=== PATIENT | female | born 1975 | race Caucasian/White ===

== ENCOUNTER 2023-10-04 01:43 | Day surgery (SDC) | payer MEDICARE, MEDICAID, SELFPAY ==
[2023-09-30 09:59] VITALS: BMI 48.1
--- NOTE | 2023-09-30 10:10 | PC.NURSE ---
Report to the Outpatient Waiting Room, entrance under the green pavilion located off [facility], at time 10:15 on date 10/04/23. Planned Procedure Time: 12:15. Time changes happen often and if your time is changed the preop area will call you the afternoon before. - You and your visitor will be asked to self-screen and do not enter if you have any COVID symptoms. - A mask is optional within the hospital at this time. Patients may have clear liquids (water, carbonated beverages, clear teas, apple juice) until 3 hours prior to surgery (9:15) with a maximum of 20 ounces. - No food from midnight until time of surgery Take the following medications with a SIP of water the morning of surgery: INHALERS, BENZTROPINE, CLONIDINE, FLUOXETINE, GABAPENTIN, LEVOTHYROXINE, OLANZAPINE, TOPIRAMATE DO NOT STOP ANY OF YOUR OTHER PRESCRIPTION MEDICATIONS PRIOR TO SURGERY ?EXCEPT THE FOLLOWING Medications to discontinue per physician: VITAMINS/SUPPLEMENTS Date to take last dose: 09/30/23 Please no make-up, nail hungarian, hairspray, perfume, deodorant, or body powder the day of surgery. No jewelry (including any body piercings) or valuables the day of surgery, leave them at home. Please take a shower or bath the night before, or the morning of, surgery with an antibacterial soap. Wear comfortable, loose fitting clothing. - Jewelry must be removed prior to entering the operating room. Rings and piercings that are not removed may be cut off. - The hospital will not accept responsibility for valuables. - Please leave all valuables, including medications, at home the day of surgery. If you are going home after surgery, a licensed local company tanker driver must drive you home. - NO public transportation without another adult if you receive anesthesia. - We recommend that an adult stay with you for 24 hours following discharge. - We also recommend that you do not drive, make important decision, drink alcoholic beverages, or take any drugs that were not prescribed by your health care provider for at least 24 hours after your discharge time. Follow any additional instructions given to you from your surgeon. If you or anyone in your household have experienced Covid symptoms in the past week, please notify your surgeon or the nurse liaison at the phone number below for possible testing. Telephone instructions given to PT - MELINDA ASHER and asked if any additional questions and then verbalized understanding. Patient advised to call surgeon office or pre surgery nurse liaison [phone] if any additional questions.
--- NOTE | 2023-10-02 07:48 | PM.IMHP ---
H&P: HPI History of Present Illness Date/Time: 10/02/23 07:48 Chief Complaint: Recurrent left Bartholin's cyst Narrative: This 48 old female admitted for excision recurrent breast cyst. She has been treated with antibiotics has been sterilized. Risks benefits PMFSH Social History Social History Smoking packs per day: 3 Smoking cigarettes per day: 60.0 Years smoked: 20 Smoking pack-years: 60.00 Smoking status: Former smoker Tobacco type: cigarettes Smoking end date: 07/29/14 Alcohol intake: never Substance use: never Substance use type: does not use Living arrangements: alone Spiritual care concerns: No Meds Home Medications and Allergies Home Medications Medication Instructions Recorded Confirmed Type atorvastatin 40 mg tablet 40 mg PO HS 09/30/23 09/30/23 History benztropine 1 mg tablet 1 mg PO DAILY 09/30/23 09/30/23 History clonidine HCl 0.1 mg tablet 0.1 mg PO DAILY 09/30/23 09/30/23 History diphenhydramine HCl 25 mg capsule 25 mg PO HS PRN Allergy Symptoms 09/30/23 09/30/23 History (Benadryl) doxepin 50 mg capsule 50 mg PO HS 09/30/23 09/30/23 History fluoxetine 10 mg tablet 10 mg PO DAILY 09/30/23 09/30/23 History fluoxetine 40 mg capsule 40 mg PO DAILY 09/30/23 09/30/23 History gabapentin 600 mg tablet 600 mg PO QID 09/30/23 09/30/23 History glycopyrrolate 9 mcg-formoterol 2 puff inhalation BID 09/30/23 09/30/23 History 4.8 mcg HFA aerosol inhaler (Bevespi Aerosphere) levalbuterol HCl 1.25 mg/3 mL 2.5 mg inhalation Q4H PRN 09/30/23 09/30/23 History solution for nebulization Shortness Of Breath levothyroxine 100 mcg tablet 100 mcg PO DAILY 09/30/23 09/30/23 History metformin 500 mg tablet,extended 500 mg PO BID 09/30/23 09/30/23 History release 24 hr mometasone 50 mcg/actuation nasal 2 spray intranasal DAILY 09/30/23 09/30/23 History spray (Nasonex 24hr Allergy) [id number]-[id number]-[id number] ac 400 1 tablet PO DAILY 09/30/23 09/30/23 History mcg-calcium carb 500 mg-vit K1 20 mcg tablet (Women's 50 Plus Multivitamin) olanzapine 2.5 mg tablet 2.5 mg PO DAILY 09/30/23 09/30/23 History olanzapine 5 mg tablet 5 mg PO TID 09/30/23 09/30/23 History omeprazole 20 mg capsule,delayed 20 mg PO DAILY 09/30/23 09/30/23 History release topiramate 50 mg tablet 50 mg PO DAILY 09/30/23 09/30/23 History Allergies Allergy/AdvReac Type Severity Reaction Status Date / Time adhesive tape Allergy Rash Verified 09/30/23 09:51 albuterol Allergy Anaphylaxis Verified 09/30/23 09:51 cetirizine [From Zyrtec] Allergy Unknown Verified 09/30/23 09:51 levofloxacin Allergy Rash Verified 09/30/23 09:51 Sulfa (Sulfonamide Allergy Other Verified 09/30/23 09:51 Antibiotics) technetium-99m Allergy Headache Verified 09/30/23 09:51 tizanidine Allergy Hallucinati Verified 09/30/23 09:51 ng POWDER IN EXAM GLOVES Allergy Rash Uncoded 09/30/23 09:51 Exam Const: General: cooperative, healthy appearing and comfortable Nutritional Appearance: overweight Orientation/consciousness: oriented to person, oriented to place and oriented to time Resp: Effort & Inspection: normal respiratory effort Cardio: Rate: regular rate Rhythm: regular rhythm Heart sounds: S1 normal heart sound present and S2 normal heart sound present GI: Inspection: normal to inspection : External Female Exam: normal external appearance and other (Small left cyst noted) Assessment and Plan Assessment and plan (1) Bartholin's cyst: Code(s): N75.0 - Cyst of Bartholin's gland Status: Acute Plan Excision and drainage of porcelain cyst
--- NOTE | 2023-10-03 12:44 | WPDANESEPPF ---
Anes - Initial Pre Proc Eval Procedure: Operation Date: 10/04/23 12:15 Proposed Procedures p Excision of Left Bartholin's Gland Cyst - Avery Pickard MD Date/Time: 10/03/23 12:44 Surgeon: Avery Pickard MD Pre Op Diagnosis: Left Bartholin's Gland Cyst Patient Data Age: 48 Gender: F Height: 1.68 m Weight: 135.2 kg Allergies Allergy/AdvReac Type Severity Reaction Status Date / Time adhesive tape Allergy Rash Verified 09/30/23 09:51 albuterol Allergy Anaphylaxis Verified 09/30/23 09:51 cetirizine [From yrte] Allergy Unknown Verified 09/30/23 09:51 levofloxacin Allergy Rash Verified 09/30/23 09:51 Sulfa (Sulfonamide Allergy Other Verified 09/30/23 09:51 Antibiotics) technetium-99m Allergy Headache Verified 09/30/23 09:51 tizanidine Allergy Hallucinati Verified 09/30/23 09:51 ng POWDER IN EXAM GLOVES Allergy Rash Uncoded 09/30/23 09:51 Home Medications Medication Instructions Recorded Confirmed Type atorvastatin 40 mg tablet 40 mg PO HS 09/30/23 09/30/23 History benztropine 1 mg tablet 1 mg PO DAILY 09/30/23 09/30/23 History clonidine HCl 0.1 mg tablet 0.1 mg PO DAILY 09/30/23 09/30/23 History diphenhydramine HCl 25 mg capsule 25 mg PO HS PRN Allergy Symptoms 09/30/23 09/30/23 History (Benadryl) doxepin 50 mg capsule 50 mg PO HS 09/30/23 09/30/23 History fluoxetine 10 mg tablet 10 mg PO DAILY 09/30/23 09/30/23 History fluoxetine 40 mg capsule 40 mg PO DAILY 09/30/23 09/30/23 History gabapentin 600 mg tablet 600 mg PO QID 09/30/23 09/30/23 History glycopyrrolate 9 mcg-formoterol 2 puff inhalation BID 09/30/23 09/30/23 History 4.8 mcg HFA aerosol inhaler (Bevespi Aerosphere) levalbuterol HCl 1.25 mg/3 mL 2.5 mg inhalation Q4H PRN 09/30/23 09/30/23 History solution for nebulization Shortness Of Breath levothyroxine 100 mcg tablet 100 mcg PO DAILY 09/30/23 09/30/23 History metformin 500 mg tablet,extended 500 mg PO BID 09/30/23 09/30/23 History release 24 hr mometasone 50 mcg/actuation nasal 2 spray intranasal DAILY 09/30/23 09/30/23 History spray (Nasonex 24hr Allergy) pwekkifg-wyg-gmslp ac 400 1 tablet PO DAILY 09/30/23 09/30/23 History mcg-calcium carb 500 mg-vit K1 20 mcg tablet (Women's 50 Plus Multivitamin) olanzapine 2.5 mg tablet 2.5 mg PO DAILY 09/30/23 09/30/23 History olanzapine 5 mg tablet 5 mg PO TID 09/30/23 09/30/23 History omeprazole 20 mg capsule,delayed 20 mg PO DAILY 09/30/23 09/30/23 History release topiramate 50 mg tablet 50 mg PO DAILY 09/30/23 09/30/23 History hydrocodone 5 mg-acetaminophen 325 1 tablet PO Q4H PRN pain #20 tabs 10/04/23 Rx mg tablet Patient hx anesthesia problems: none Family hx anesthesia problems: none Results Review: All pre-operative results and documents have been reviewed as part of the pre-operative evaluation. [facility] Past Medical History Medical History (Updated 10/03/23 @ 12:45 by Tomás Moulton DO) Anxiety Bipolar disorder Chronic pain COPD (chronic obstructive pulmonary disease) History of suicide attempt Hyperlipidemia Hypothyroidism IgA deficiency Migraine Osteoarthritis PONV (postoperative nausea and vomiting) Surgical History Surgical History (Updated 10/03/23 @ 12:45 by Tomás Moulton DO) History of cholecystectomy History of hysterectomy Social History Social History Smoking packs per day: 3 Smoking cigarettes per day: 60.0 Years smoked: 20 Smoking pack-years: 60.00 Smoking status: Former smoker Tobacco type: cigarettes Smoking end date: 07/29/14 Alcohol intake: never Substance use: never Substance use type: does not use Living arrangements: alone Spiritual care concerns: No Anes - Eval Final PreProcedure Day of Procedure 10/03/23 12:44 Patient weight: morbidly obese Heart: regular rate and rhythm Lungs: clear to auscultation Airway: Mallampati scale cl
[2023-10-04] VITALS (8 sets, daily range): BP systolic 108–134; BP diastolic 72–90; PULSE 92–105; RESP 8–16; TEMP 36.3–36.5; O2SAT 94–99
--- NOTE | 2023-10-04 05:55 | WPDHPUPDATE1 ---
History and Physical Update Update Date/Time: 10/04/23 05:55 History and Physical has been reviewed, including an updated exam of the patient. There are NO changes in the patient's condition. Risks, benefits, and alternatives have been discussed and questions answered. Patient agrees to proceed with procedure.
--- NOTE | 2023-10-04 06:18 | ECG_ITS ---
Measurements Intervals Blessing Rate: 91 P: 16 CT: 149 QRS: 47 QRSD: 86 T: 29 QT: 365 QTc: 449 Interpretive Statements SINUS RHYTHM BASELINE ARTIFACT- II, III, AVF, V4 NORMAL ECG NO PREVIOUS ECG AVAILABLE FOR COMPARISON Electronically Signed On 10-04-2023 10:17:54 [employer]ER by Carlos Vital D.O.
[2023-10-04] MEDS: LACTATED RINGERS 1,000 ML 30 ML IV CONT (10:30)
[2023-10-04 10:42] LABS: Anion Gap 5 mmol/L (8-16); Blood Urea Nitrogen 19 mg/dL (7-17); Calcium 9.3 mg/dL (8.4-10.2); Carbon Dioxide 27 mmol/L (22-30); Chloride 110 mmol/L (98-107); Estimated CRCL calculation 105 ml/min; Estimated Glomerular Filt Rate > 60; Glucose 100 mg/dL (65-110); Potassium 4.2 mmol/L (3.4-5.0); Sodium 142 mmol/L (137-145)
[2023-10-04] MEDS: LIDOCAINE HCL 1% LOCAL INJ 20 ML VIAL 5 ML INFILTRATE (11:20)
--- NOTE | 2023-10-04 11:26 | W.PM.PROC2 ---
Procedure Note - Detailed Date of Procedure 10/04/23 Pre-op Diagnosis Left Bartholin's Gland Cyst Post-op Diagnosis Same Procedure Performed Excision left or the cyst Surgeon Avery Pickard MD Anesthesia MAC and Local Indications 39 female with left Bartholin's recurrent cyst Findings small Bartholin cyst Description of Procedure patient was prepped draped sterile fashion placed dorsal lithotomy position. Under excellent IV sedation weighted speculum placed in posterior fornix vagina. Left 4th 1 cyst was palpated incision made inside the vagina and the down to the layer of the cyst this was drained clear a Word catheter was then placed in the space and this was sewn circumferential incision with 4-0 Vicryl she tolerated the procedure well. Blood loss estimated 5cc. All sponge, needle, instrument counts were correct. Estimated Blood Loss 5 Drains No Packing No Pathology None sent Complications No immediate complications Condition Stable Disposition PACU
[2023-10-04 11:48] LABS: Glucose Point of Care 94 mg/dl (65-105)
== END 2023-10-04 12:43 | disposition home or self-care (01) ==
PROVIDERS: Anesthesiology; PCP Family Medicine; Visit Provider Obstetrics & Gynecology
PROC: (CPT 56440; principal; 2023-10-04 11:15)
DX: N75.0 Cyst of Bartholin's gland (principal); Z87.891 Personal history of nicotine dependence; E78.5 Hyperlipidemia, unspecified; E03.9 Hypothyroidism, unspecified; M19.90 Unspecified osteoarthritis, unspecified site; J44.9 Chronic obstructive pulmonary disease, unspecified; F31.9 Bipolar disorder, unspecified; G89.29 Other chronic pain
CPT/HCPCS: 56740; 36415; 80048; 82948; 93005; J1100; J1200; J2250; J2405; J2704; J3010; J7120